=== PATIENT | female | born 2000 | race Caucasian/White ===

== ENCOUNTER 2020-01-18 13:16 | Outpatient (CLI) | payer OTHER | END 2020-01-18 13:25 | disposition home or self-care (01) | LOC: RAD 13:16 | DX: N62 Hypertrophy of breast (principal) ==

== ENCOUNTER 2025-02-13 13:31 | Outpatient (CLI) | payer OTHER | END 2025-02-13 13:39 | disposition home or self-care (01) | LOC: RAD 13:31 | PROVIDERS: ATTEND Otolaryngology Otolaryngology/Facial Plastic Surgery | DX: Z01.89 Encounter for other specified special examinations (principal) ==